=== PATIENT | female | born 1955 | race Caucasian/White ===

== ENCOUNTER 2018-04-27 11:01 | Emergency (ER) | payer OTHER, MEDICARE ==
[2018-04-27] MEDS ORDERED: NS 0.9% 1000 ML* 1,000 ML IV ONE (11:15)
--- NOTE | 2018-04-27 11:52 | ED ---
HPI Chest Pain - HPI Summary HPI Summary: This patient is a 63 year old female presenting to [facility] accompanied by her significant other with a chief complaint of chest pain since 3 days ago, on . 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 Patient was discharged from a recent donorubicin infusion on 04/24/18 at [facility]. Patient presents today due to chest pain that she believes is connected to swallowing her prescribed medications. Every time she takes her medications, she swallows 12-15 pills at once, patient states she feels pain in her right anterior chest, radiating through to the mid sternum. This morning, patient states that she felt fine prior to taking her medication, but approx. 30 minutes after ingestion, felt the same pain she has been feeling the past few days in her mid sternum. Each episode lasts around 2 hours and resolves spontaneously. During the painful episodes, patient states that she "feels like she's having a heart attack." She states that she feels like she "got punched" and the pain radiates to her shoulder blades. The pain is rated 7/10 in severity during the episodes and 3/10 currently in the ED. Symptoms aggravated by nothing. Symptoms alleviated by nothing. Patient additionally reports dizziness, abd pain due to enlarged spleen, distended abdomen. Dr. Martinez, heme/onc fellow at [place] called ahead to advise us that pt was coming to the ED, and that she was admitted from induction therapy for her ALL after dx 04/07/18, had initial RX with Vincristine, and now donorubicin. Pt's next donorubicin infusion is scheduled in [place] on 05/02/18. Pt is expected to be neutropenic at this time after donorubicin, per Dr. Martinez. Patient has a PMHx of heart disease (2013, 2015) with [address] and of CVA (2013). Patient's last stress test was 4 months ago with her care companion. Currently, she is seeing Dr. Lowe ([facility]) in [place]. Vital signs while in room: HR 86 bpm, BP 172/92. Home Medications see below: pt is on pantoprazole, not noted on list below. - History of Current Complaint Chief Complaint: EDChestPainROMI Time Seen by Provider: 04/27/18 11:15 Hx Obtained From: Patient, Family/Peoplesoft - Ish - Significant Other, Tc - Son, and her sister, Other: - Dr. Martinez, [place] heme/onc fellow Onset/Duration: Started Hours Ago, Started Days Ago - 3, Resolved Timing: Intermittent, Lasting Hours - 2 Initial Severity: Moderate Current Severity: Mild Pain Intensity: 3 Pain Scale Used: 0-10 Numeric Chest Pain Location: Mid Sternal, Right Anterior Chest Pain Radiates: Yes Chest Pain Radiates To:: Shoulder, Other - mid-sternum Character: Burning, Sharp/Stabbing Aggravating Factor(s): Nothing Alleviating Factor(s): Nothing Associated Signs and Symptoms: Positive: Dizziness, Abdominal Pain. Negative: Fever - Risk Factors Pulmonary Embolism Risk Factors: Malignancy AMI/ACS Risk Factors: Myocardial Infarction, Hypertension, Dyslipidemia - Allergy/Home Medications Allergies/Adverse Reactions: Allergies Allergy/AdvReac Type Severity Reaction Status Date / Time buspirone [From BuSpar] Allergy Unknown Verified 04/27/18 11:10 Reaction Details mirtazapine Allergy Unknown Verified 04/27/18 11:10 Reaction Details olanzapine [From Zyprexa] Allergy Unknown Verified 04/27/18 11:10 Reaction Details pregabalin [From Lyrica] Allergy Unknown Verified 04/27/18 11:10 Reaction Details ranolazine [From Ranexa] Allergy Unknown Verified 04/27/18 11:10 Reaction Details sulfamethoxazole Allergy Unknown Verified 04/27/18 11:10 [From Bactrim] Reaction Details trimethoprim [From Bactrim] Allergy Unknown Verified 04/27/18 11:10 Reaction Details elavil Allergy Unknown See Comment Uncoded 06/30/15 18:58 Home Medications: Home Medications Acyclovir 200 mg PO QID 04/27/18 [History Confirmed 04/27/18] Atovaquone 5 ml PO DAILY 04/27/18 [History Confirmed 04/27/18] Cipro 500 MG TAB 500 mg PO BID 04/27/18 [History Confirmed 04/27/18] Colace 100 mg PO DAILY 04/27/18 [History Confirmed 04/27/18] Diflucan 100 mg tab 200 mg PO DAILY 04/27/18 [History Confirmed 04/27/18] Gabapentin 200 mg PO TID 04/27/18 [History Confirmed 04/27/18] Meclizine HCl 25 mg PO TID PRN 04/27/18 [History Confirmed 04/27/18] Miralax 1 dose PO DAILY 04/27/18 [History Confirmed 04/27/18] Mirtazapine 15 mg PO DAILY 04/27/18 [History Confirmed 04/27/18] Prochlorperazine 5 mg PO DAILY 04/27/18 [History Confirmed 04/27/18] Senna 2 tab PO DAILY 04/27/18 [History Confirmed 04/27/18] Tylenol 325 mg PO Q4HR 04/27/18 [History Confirmed 04/27/18] Zofran 4 MG Odt TAB* 4 mg PO BID PRN 04/27/18 [History Confirmed 04/27/18] PMH/Surg Hx/FS Hx/Imm Hx Previously Healthy: No Endocrine/Hematology History: Reports: Other Endocrine/Hematological Disorders - ALL Denies: Hx Diabetes Cardiovascular History: Reports: Hx Angina, Hx Coronary Artery Disease, Hx Hypercholesterolemia, Hx Hypotension, Hx Hypertension, Hx Myocardial Infarction - 2011 Denies: Hx Valvular Heart Disease Respiratory History: Denies: Hx Asthma GI History: Reports: Hx Gastroesophageal Reflux Disease, Other GI Disorders - Hx Splenomegaly Musculoskeletal History: Reports: Hx Arthritis, Hx Orthopedic Injury - R Shoulder overuse injury, rotator cuff syndrome R shoulder, Other Musculoskeletal History - 3 bulging disk in back of neck Sensory History: Reports: Hx Contacts or Glasses - only for reading Opthamlomology History: Reports: Hx Contacts or Glasses - only for reading Neurological History: Reports: Hx CVA, Hx Headaches, Hx Transient Ischemic Attacks (TIA), Other Neuro Impairments/Disorders - L sided numbness from previous stroke Psychiatric History: Reports: Hx Anxiety, Hx Depression, Hx Panic Disorder, Other Psychiatric Issues/Disorders - dysthymic disorder - Cancer History Hx Chemotherapy: No Hx Radiation Therapy: No - Surgical History Surgery Procedure, Year, and Place: CAD s/p stents in 2010, tonsillectomy, adenoidectomy, rotator cuff surgery R shoulder. 3 R wrist repair and nerve surgeries Hx Anesthesia Reactions: Yes - Severe N&V for at least a week following Infectious Disease History: Yes Infectious Disease History: Reports: Hx Hepatitis - "drug-enduced" per pt. Denies: Traveled Outside the [place] in Last 30 Days - Family History Known Family History: Positive: Cardiac Disease - father - Social History Lives: With Family - unmarried significant other Alcohol Use: None Hx Substance Use: No Substance Use Type: Reports: None Hx Tobacco Use: Yes - States she quit 2 weeks ago Smoking Status (MU): Light Every Day Tobacco Smoker Type: Cigarettes Amount Used/How Often: 10 cigarettes/day Length of Time of Smoking/Using Tobacco: 40 years Have You Smoked in the Last Year: Yes Review of Systems Negative: Fever Positive: Chest Pain Respiratory: Negative Positive: Abdominal Pain Positive: no symptoms reported Musculoskeletal: Negative Skin: Negative Neurological: Other - dizziness Psychological: Normal All Other Systems Reviewed And Are Negative: Yes Physical Exam - Summary Physical Exam Summary: Appearance: Chronically ill-appearing, no pain distress, well-nourished Skin: Warm, color reflects adequate perfusion, dry Head: Normal Head/Face inspection, atraumatic Eyes: Conjunctiva clear ENT: Normal inspection Neck: Supple, no nodes, no JVD Respiratory: Lungs clear, normal breath sounds, no respiratory distress Cardio: RRR, No murmur, pulses normal, brisk capillary refill Abdomen: soft, distended, not tympanitic, nontender, spleen nonpalpable Bowel sounds: Present Musculoskeletal: Strength Intact/ROM intact, no calf tenderness, no edema. PICC line in right upper extremity Psychological: Normal Neuro: Alert, muscle tone normal, no focal deficit Triage Information Reviewed: Yes Vital Signs On Initial Exam: Initial Vitals Pulse BP Pulse Ox 87 172/92 99 04/27/18 11:09 04/27/18 11:09 04/27/18 11:09 Vital Signs Reviewed: Yes Diagnostics - Vital Signs Vital Signs Temp Pulse Resp BP Pulse Ox 04/27/18 11:12 98.9 F 91 18 172/92 98 04/27/18 11:10 14 04/27/18 11:09 87 172/92 99 - Laboratory Result Diagrams: 04/27/18 11:30 04/27/18 11:16 Lab Statement: Any lab studies that have been ordered have been reviewed, and results considered in the medical decision making process. - Radiology CXR Radiology Interpretation Completed By: Radiologist Summary of Radiographic Findings: CXR reveals, per radiologist, IMPRESSION: NO ACTIVE CARDIOPULMONARY DISEASE IS NOTED. ED physician has reviewed this radiology report. - CT CT Chest/Thorax CT Interpretation Completed By: Radiologist Summary of CT Findings: CT Chest/Thorax reveals, per radiologist, IMPRESSION: No pulmonary embolus is noted. Aorta demonstrates no evidence of aneurysmal dilatation or thoracic aortic dissection. ED physician has reviewed this radiology report. - EKG 1110 Cardiac Rate: NL EKG Rhythm: Sinus Rhythm - [address] Segment: Non-Specific Ectopy: None EKG Comparison: No Significant Change - since 11/09/15 Summary of EKG Findings: An EKG, taken 1110, reveals NSR (86 BPM), normal AVIVG , normal QTc, normal axis, no acute changes, not a STEMI. Re-Evaluation - Re-Evaluation First Eval Re-Evaluation Time: 12:33 Change: Improved Comment: Vital signs while in room: HR 81 bpm, BP 118/71. Informed patient of normal Troponin levels, but will continue workup. Patient currently states that she does not have chest pain. Second Eval Re-Evaluation Time: 13:00 Change: Unchanged Comment: Patient is still pain free. Explained the need for CT to patient. SO and son have left. Third Eval Re-Evaluation Time: 14:50 Change: Unchanged Comment: Pt remains chest pain free. Her sister is with her. Pt is retentive of water without nausea or vomiting or chest pain. Fourth Eval Re-Evaluation Time: 15:20 Change: Unchanged Comment: Pt was able to provide urine sample. No urinary symptoms. No chest pain. BP 141 systolic. Agrees with discharge. Chest Pain Course/Dx - Course Course Of Treatment: This patient is a 63 year old female presenting to [facility] accompanied by her significant other with a chief complaint of chest pain since 3 days ago, on 04/24/2018. Patient was recently dx with ALL and is currently taking donorubicin infusions. An EKG, taken 1110, reveals NSR (86 BPM), normal AVIVG, normal QTc, normal axis, no acute changes, not a STEMI. CXR reveals, per radiologist, IMPRESSION: NO ACTIVE CARDIOPULMONARY DISEASE IS NOTED. ED physician has reviewed this radiology report. Aware of absolute neutrophil count 0.2 at 1155. Reverse isolation initiated for neutropenic precautions at 1155. With Elevated D-Dimer results on 1253, will order CTA Chest. CT Chest/ Thorax reveals, per radiologist, IMPRESSION: No pulmonary embolus is noted. Aorta demonstrates no evidence of aneurysmal dilatation or thoracic aortic dissection. ED physician has reviewed this radiology report. Bloodwork Obtained. Urinalysis Obtained. In the ED course the patient was given NS 0.9% IV bolus, Iohexol 59mL IV. We discussed patient care with Dr. Kaur ( Mobile Sales Expert/Oncologist at [place]) at 1510 and discussed all of her hematology numbers. He recommended keeping her on her current medications, keeping the followup on 05/02/18 for next donorubicin infusion and discharging her home. Patient will be discharged with a dx of right chest pain, ALL, neutropenia. Patient is advised to follow up with Dr. Zuñiga (PCP) in 3 days. The patient is agreeable with this plan. - Chest Pain Differential Diagnosis/HQI/PQRI: Acute CA, ACS, CHF, GI Disease, Pulmonary Embolism - Diagnoses Provider Diagnoses: Chest pain, Neutropenia, ALL (acute lymphoblastic leukemia), Hypertension, poor control - Provider Notifications Instructed by Provider To: Other - We discussed patient care with Dr. Kaur ( Oncologist at [place]) at 1510 and discussed all of her hematology numbers. He recommended keeping her on her current medications, keeping the followup on 05/02 and discharging her home. Discharge - Sign-Out/Discharge Documenting (check all that apply): Patient Departure - Discharge Plan Condition: Stable Disposition: HOME Patient Education Materials: Chest Pain (ED), Gastroesophageal Reflux Disease ( ED) Referrals: Yogesh PRINGLE,Ayana Early [Primary Care Provider] - 2 Days Additional Instructions: Continue your medications as directed, but you may space them out in time a bit. We spoke with Dr. Kaur, from [facility] about your condition today, and he is agreeable with your discharge as well. You are neutropenic right now, with an absolute neutrophil count of 0.2, so you need to be cautious about acquiring any infections. This number is expected after having your chemotherapy. You did not have a pulmonary embolus or problem with your aorta on the CTA of your chest, and you had two troponin (heart enzyme levels) that were zero, three hours apart. You may continue your usual activities at home and keep your appointment on May 02, 2018 with [facility] for your next chemotherapy infusion. Return to the ER if any new or worsening symptoms. - Billing Disposition and Condition Condition: STABLE Disposition: Home - Attestation Statements Document Initiated by Scribe: Yes Documenting Scribe: Niesha Gordillo Provider For Whom Scribe is Documenting (Include Credential): Suzanne Pelayo MD Scribe Attestation: I, Tecjoon Duy, scribed for Suzanne Pelayo MD on 05/06/18 at 1423. Scribe Documentation Reviewed: Yes Provider Attestation: The documentation as recorded by the Niesha ospina accurately reflects the service I personally performed and the decisions made by me, Suzanne Pelayo MD Status of Scribluis alberto Document: Viewed
[2018-04-27 11:53] LABS: ABS Basophils 0 10^3/ul (0-0.2); ABS Eosinophils 0 10^3/ul (0-0.6); ABS Lymphocytes 0.4 10^3/ul (1.0-4.8); ABS Monocytes 0 10^3/ul (0-0.8); ABS Neutrophils 0.2 10^3/ul (1.5-7.7); Activated Partial Thrombo Time 23.9 seconds (26.0-36.3); Hematocrit 23 % (35-47); Hemoglobin 7.7 g/dl (12.0-16.0); INR 0.87 (0.77-1.02); Mean Corpuscular HGB Conc 34 g/dl (31-36); Mean Corpuscular Hemoglobin 28 pg (27-31); Mean Corpuscular Volume 82 fL (80-97); Mean Platelet Volume 6.9 fL (7.4-10.4); Platelet Count 59 10^3/ul (150-450); Red Blood Count 2.78 10^6/ul (4.00-5.40); Red Cell Distribution Width 17 % (10.5-15); White Blood Count 0.6 10^3/ul (3.5-10.8)
[2018-04-27 12:34] LABS: ABS Nucleated RBC 0 10^3/ul; Eosinophil % 1.3 %; Lymphocyte % 63.5 %; Nucleated Red Blood Cells % 0
[2018-04-27 12:44] LABS: Albumin 3.5 g/dL (3.2-5.2); Calcium 8.2 mg/dL (8.6-10.3); Magnesium 2.1 mg/dL (1.9-2.7); Potassium 4.1 mmol/L (3.5-5.0); Total Bilirubin 0.5 mg/dL (0.2-1.0)
[2018-04-27 12:50] LABS: Albumin/Globulin Ratio 1.8 (1-3); BUN/Creatinine Ratio 20.5 (8-20); EGFR Non-African American 69.9 (>60); Globulin 1.9 g/dL (2-4); Total Protein 5.4 g/dL (6.4-8.9)
[2018-04-27 13:02] LABS: TSH (Thyroid Stimulating Horm) 1.99 mcIU/mL (0.34-5.60)
[2018-04-27] MEDS ORDERED: Iohexol 350* (CONTRAST) 500 ML MDV IV ONE (13:13)
[2018-04-27 15:22] VITALS: BP 141/79
[2018-04-27 15:34] LABS: Urine Appearance Clear; Urine Bilirubin Negative (Negative); Urine Blood Negative (Negative); Urine Color Straw; Urine Glucose Negative (Negative); Urine Ketones Negative (Negative); Urine Nitrite Negative (Negative); Urine Protein Negative (Negative); Urine Specific Gravity 1.034 (1.010-1.030); Urine Urobilinogen Negative (Negative)
== END 2018-04-27 15:52 | disposition home or self-care (01) ==
LOC: ED 11:01
DX: R07.9 Chest pain, unspecified (principal); D70.9 Neutropenia, unspecified; C91.00 Acute lymphoblastic leukemia not having achieved remission; I10 Essential (primary) hypertension
CPT/HCPCS: 36415; 71045; 71275; 80053; 81003; 82550; 82553; 83605; 83735; 83880; 84436; 84443; 84484; 85025; 85060; 85379; 85610; 85730; 93005; 96361; 96374; 99284; Q9967

== ENCOUNTER 2018-12-01 16:02 | Inpatient (IN) | payer OTHER, MEDICARE ==
[2018-12-01] MEDS ORDERED: NS 0.9% 1000 ML** 1,000 ML IV.FLUID IV ONE ×2 (16:22→16:35)
--- NOTE | 2018-12-01 16:33 | ED ---
Abdominal Pain/Female - HPI Summary HPI Summary: This patient is a 63 year old female accompanied by her daughter presenting to [facility] with a chief complaint of abdominal pain since this morning. The patient has acute myeloid leukemia and is currently undergoing chemotherapy. Her daughter reports she has fatigue and weakness. Her pain is rated 7/10 in severity. Patient has a fever in room. - History of Current Complaint Chief Complaint: EDAbdPain Stated Complaint: ABD PAIN PER EMS Time Seen by Provider: 12/01/18 16:24 Hx Obtained From: Family/Book Or Script Editor Onset/Duration: Lasting Hours Timing: Constant Pain Intensity: 7 Pain Scale Used: 0-10 Numeric Allergies/Adverse Reactions: Allergies Allergy/AdvReac Type Severity Reaction Status Date / Time amitriptyline [From Elavil] Allergy See Comment Verified 12/01/18 16:57 buspirone [From BuSpar] Allergy Unknown Verified 04/27/18 11:10 Reaction Details mirtazapine Allergy Unknown Verified 04/27/18 11:10 Reaction Details olanzapine [From Zyprexa] Allergy Unknown Verified 04/27/18 11:10 Reaction Details pregabalin [From Lyrica] Allergy Unknown Verified 04/27/18 11:10 Reaction Details ranolazine [From Ranexa] Allergy Unknown Verified 04/27/18 11:10 Reaction Details sulfamethoxazole Allergy Unknown Verified 04/27/18 11:10 [From Bactrim] Reaction Details trimethoprim [From Bactrim] Allergy Unknown Verified 04/27/18 11:10 Reaction Details PMH/Surg Hx/FS Hx/Imm Hx Endocrine/Hematology History: Denies: Hx Diabetes Cardiovascular History: Reports: Hx Angina, Hx Coronary Artery Disease, Hx Hypercholesterolemia, Hx Hypotension, Hx Hypertension, Hx Myocardial Infarction - 2012, Other Cardiovascular Problems/Disorders - CADx3, CVA/TIA Denies: Hx Valvular Heart Disease Respiratory History: Denies: Hx Asthma GI History: Reports: Hx Gastroesophageal Reflux Disease, Other GI Disorders - Hx Splenomegaly Musculoskeletal History: Reports: Hx Arthritis, Hx Orthopedic Injury - R Shoulder overuse injury, rotator cuff syndrome R shoulder, Other Musculoskeletal History - 3 bulging disk in back of neck Sensory History: Reports: Hx Contacts or Glasses - only for reading Opthamlomology History: Reports: Hx Contacts or Glasses - only for reading Neurological History: Reports: Hx Headaches, Hx Transient Ischemic Attacks (TIA) , Other Neuro Impairments/Disorders - L sided numbness from previous stroke Psychiatric History: Reports: Hx Anxiety, Hx Depression, Hx Panic Disorder, Other Psychiatric Issues/Disorders - dysthymic disorder - Cancer History Hx Chemotherapy: No Hx Radiation Therapy: No - Surgical History Surgery Procedure, Year, and Place: CAD s/p stents in 2010, tonsillectomy, adenoidectomy, rotator cuff surgery R shoulder. 3 R wrist repair and nerve surgeries Hx Anesthesia Reactions: Yes - Severe N&V for at least a week following Infectious Disease History: No Infectious Disease History: Reports: Hx Hepatitis - "drug-enduced" per pt. Denies: Traveled Outside the [place] in Last 30 Days - Family History Known Family History: Positive: Cardiac Disease - father, Hypertension - Social History Alcohol Use: None Hx Substance Use: No Substance Use Type: Reports: None Hx Tobacco Use: Yes - States she quit 2 weeks ago Smoking Status (MU): Light Every Day Tobacco Smoker Type: Cigarettes Amount Used/How Often: 10 cigarettes/day Length of Time of Smoking/Using Tobacco: 40 years Have You Smoked in the Last Year: Yes Review of Systems Positive: Fever, Fatigue Positive: Abdominal Pain Positive: Weakness All Other Systems Reviewed And Are Negative: Yes Physical Exam - Summary Physical Exam Summary: Appearance: Well appearing, no pain distress. Alert and confused. Skin: warm, dry, reflects adequate perfusion Head/face: normal. Blister on the lower lip. Eyes: EOMI, SEN ENT: normal Neck: supple, non-tender Respiratory: CTA, breath sounds present Cardiovascular: Tachycardia, pulses symmetrical Abdomen: diffuse abdominal tenderness, soft. Musculoskeletal: normal, strength/ROM intact Neuro: normal, sensory motor intact, A&Ox3 Triage Information Reviewed: Yes Vital Signs On Initial Exam: Initial Vitals Temp Pulse Resp BP Pulse Ox 101.2 F 117 18 86/56 97 12/01/18 16:17 12/01/18 16:17 12/01/18 16:17 12/01/18 16:17 12/01/18 16:17 Vital Signs Reviewed: Yes Procedures - Central Line Right Femoral Central Line Position: femoral (R) - Intubation Time of Intubation: 19:23 Intubation Method: orotracheal Tube Size (cm): 7.5 Medications: Succinylcholine Intubation Complications: no complications Post Intubation Xray: Yes Diagnostics - Vital Signs Vital Signs Temp Pulse Resp BP Pulse Ox 12/01/18 16:18 116 86/56 97 12/01/18 16:17 101.2 F 116 18 86/56 97 - Laboratory Result Diagrams: 12/01/18 16:51 12/01/18 16:51 Lab Statement: Any lab studies that have been ordered have been reviewed, and results considered in the medical decision making process. - Radiology CXR Radiology Interpretation Completed By: Radiologist Summary of Radiographic Findings: Chest x-ray findings are most consistent with right upper lobe pneumonia. I recommend follow-up on chest x-ray after an appropriate course of therapy to certain resolution. ED Provider has reviewed this report. - CT Brain CT Interpretation Completed By: Radiologist Summary of CT Findings: Bilateral frontoparietal subdural hygromas with maximum thickness of 9 mm are likely chornic. The ventricles appear somewhat small and could be secondary to these chronic SDH. ED Provider has reviewed this report. Abd/Pelvis CT Interpretation Completed By: Radiologist Summary of CT Findings: Mild focal ileus of distal small bowel, nonspecific finding. ED Provider has reviewed this report. - EKG 1622 Cardiac Rate: Tachycardia - 125 BPM EKG Rhythm: Sinus Tachycardia 1846 Cardiac Rate: Tachycardia - 116 BPM EKG Rhythm: Sinus Tachycardia Abdominal Pain Fem Course/Dx - Course Course Of Treatment: This patient is a 63 year old female accompanied by her daughter presenting to [facility] with a chief complaint of abdominal pain since this morning. Chest x-ray findings are most consistent with right upper lobe pneumonia. I recommend follow-up on chest x-ray after an appropriate course of therapy to certain resolution. Brain CT reveals Bilateral frontoparietal subdural hygromas with maximum thickness of 9 mm are likely chornic. The ventricles appear somewhat small and could be secondary to these chronic SDH. CT Pelvis reveals Mild focal ileus of distal small bowel, nonspecific finding. EKG revealed sinus tachycardia. Bloodwork/UA reviewed. Central line was placed in the right femoral artery at 1910. Patient was intubated orotracheally at 1930. Dr. Cole and Dr. Leggett, Hospitalists, accepted the patient for admission. Gallbladder U/S reading pending upon admission. This plan was discussed with the patient and she was agreeable with this plan. - Diagnoses Provider Diagnoses: Septic shock, Pyelonephritis, Subdural hematoma, Multiple organ failure, Pneumonia, Leukemia, Abnormal serum level of lipase, Respiratory failure requiring intubation - Critical Care Time Critical Care Time: 75-104 min Discharge - Sign-Out/Discharge Documenting (check all that apply): Patient Departure - Admission Patient Received Moderate/Deep Sedation with Procedure: No - Discharge Plan Condition: Stable Disposition: ADMITTED TO [facility] Referrals: Ayana Zuñiga MD [Primary Care Provider] - - Attestation Statements Document Initiated by Scribe: Yes Documenting Scribe: Juan Diego Corcoran Provider For Whom Scribe is Documenting (Include Credential): Mikie Melendrez MD Scribe Attestation: Juan Diego Painting, scribed for Mikie Melendrez MD on 12/01/18 at 1847. Status of Scribe Document: Ready
[2018-12-01] MEDS ORDERED: Piperacillin/Tazobac ADVAN(*) 3.375 GM in NS 0.9% 100 ML* 100 ML IVPB ONE ×2 (16:35→20:06)
[2018-12-01] MEDS ORDERED: Acetaminophen TAB* 325 MG PO ONE (16:50)
[2018-12-01] MEDS ORDERED: Vancomycin(*) 1,250 MG IV x ONCE IVPB ONE ×2 (17:00)
[2018-12-01] MEDS ORDERED: Vancomycin(*) 1,000 MG VIAL IVPB SCH (17:00)
[2018-12-01 17:11] LABS: ABS Lymphocytes 0.1 10^3/ul (1.0-4.8); ABS Monocytes 0.1 10^3/ul (0-0.8); ABS Neutrophils 0.4 10^3/ul (1.5-7.7); Eosinophil % 0.1 %; Hematocrit 24 % (35-47); Lymphocyte % 16.6 %; Mean Corpuscular HGB Conc 33 g/dL (31-36); Mean Corpuscular Hemoglobin 30 pg (27-31); Mean Corpuscular Volume 91 fL (80-97); Mean Platelet Volume 6.6 fL (7.4-10.4); Platelet Count 244 10^3/uL (150-450); Red Blood Count 2.67 10^6 /uL (3.70-4.87); Red Cell Distribution Width 17 % (10-15); White Blood Count 0.7 10^3/uL (3.5-10.8)
[2018-12-01 17:12] LABS: Activated Partial Thrombo Time 27.1 seconds (26.0-38.0); INR 1.27 (0.82-1.09)
[2018-12-01 17:20] LABS: ALT 168 U/L (7-52); AST 141 U/L (13-39); Albumin 3.1 g/dL (3.2-5.2); Albumin/Globulin Ratio 1.1 (1-3); Alkaline Phosphatase 872 U/L (34-104); Blood Urea Nitrogen 28 mg/dL (6-24); CO2 Carbon Dioxide 15 mmol/L (22-32); Calcium 8.4 mg/dL (8.6-10.3); Chloride 102 mmol/L (101-111); EGFR African American 46.3 (>60); EGFR Non-African American 38.2 (>60); Globulin 2.7 g/dL (2-4); Glucose 126 mg/dL (70-100); Sodium 136 mmol/L (135-145); Total Protein 5.8 g/dL (6.4-8.9)
[2018-12-01 17:21] LABS: Anion Gap 19 mmol/L (2-11); Potassium 5.2 mmol/L (3.5-5.0)
[2018-12-01] MEDS ORDERED: Iodixanol* (CONTRAST) 320 MG/ML 100 ML SDV IV ONE (17:26)
[2018-12-01 17:34] LABS: Troponin I 0.05 ng/mL (<0.04)
[2018-12-01] MEDS ORDERED: Albuterol/Ipratropium NEB.SOL* Albuterol 2.5 MG/Ipratropium 0.5 MG 3 ML INH ONE (18:55)
[2018-12-01] MEDS ORDERED: Norepinephrine 16MCG/ML IVPRE* 4,000 MCG/250 ML BAG IV SCH ×2 (19:00→21:00)
[2018-12-01] MEDS ORDERED: Norepinephrine 16MCG/ML IVPRE* 4,000 MCG/250 ML BAG IV ONE ×2 (19:01→21:53)
[2018-12-01] MEDS ORDERED: Etomidate* 2 MG/ML 20 ML VIAL (40 MG) ONE (19:30)
[2018-12-01] MEDS ORDERED: Succinylcholine* 20 MG/ML 10 ML VIAL ONE (19:30)
[2018-12-01] MEDS ORDERED: Propofol* 100 ML ONE (19:39)
[2018-12-01] MEDS ORDERED: Propofol* 100 ML IV SCH ×2 (20:00→21:00)
[2018-12-01] MEDS ORDERED: Albuterol/Ipratropium NEB.SOL* Albuterol 2.5 MG/Ipratropium 0.5 MG 3 ML INH PRN (20:07)
[2018-12-01] MEDS ORDERED: PROCHLORPERAZINE INJ 5 MG/ML 2 ML VIAL IV PRN (20:07)
[2018-12-01] MEDS ORDERED: Acetaminophen ADULT LIQ* 650 MG/20.3 ML UDC G TUBE PRN (20:07)
[2018-12-01] MEDS ORDERED: Morphine 4 MG/ML VIAL (1 ml) 4 MG/ML VIAL IV ONE (20:15)
[2018-12-01] MEDS ORDERED: Acetaminophen SUPP* 650 MG SUPP PR PRN (20:39)
[2018-12-01] MEDS ORDERED: Zosyn per Pharmacy* NOTE FOLLOW UP SCH (21:00)
[2018-12-01] MEDS ORDERED: Vancomycin(*) 1,000 MG in NS 0.9% 250 ML* 250 ML IVPB ONE (21:00)
[2018-12-01] MEDS ORDERED: Vancomycin per Pharmacy* NOTE FOLLOW UP SCH (21:00)
[2018-12-01] MEDS ORDERED: ZOSYN 3.375 GM Q8H per EXTENDED INFUSION IVPB SCH ×4 (21:00→22:00)
[2018-12-01] MEDS ORDERED: Lactated Ringers 1000 ML Bag* 1,000 ML IV SCH (21:00)
[2018-12-01] MEDS ORDERED: Azithromycin 500 mg/250 ml NS 500 MG/250 ML BAG IVPB SCH (21:00)
[2018-12-01 21:19] LABS: Hematocrit 23 % (35-47); Hemoglobin 7.6 g/dL (12.0-16.0); Mean Corpuscular HGB Conc 33 g/dL (31-36); Mean Corpuscular Hemoglobin 30 pg (27-31); Mean Corpuscular Volume 91 fL (80-97); Mean Platelet Volume 6.9 fL (7.4-10.4); Platelet Count 333 10^3/uL (150-450); Red Blood Count 2.54 10^6 /uL (3.70-4.87); Red Cell Distribution Width 18 % (10-15); White Blood Count 0.7 10^3/uL (3.5-10.8)
[2018-12-01 21:24] LABS: Urine Appearance Cloudy; Urine Bacteria Absent (Absent); Urine Bilirubin Negative (Negative); Urine Blood Negative (Negative); Urine Color Amber; Urine Glucose Negative (Negative); Urine Ketones Negative (Negative); Urine Nitrite Negative (Negative); Urine Protein 1+(30 mg/dL) (Negative); Urine Red Blood Cell 3+(>10/hpf) (Absent); Urine Specific Gravity 1.043 (1.010-1.030); Urine Squamous Epithelial Cell Present (Absent); Urine Urobilinogen Negative (Negative); Urine White Blood Cell 2+(11-20/hpf) (Absent)
[2018-12-01 21:28] LABS: ALT 140 U/L (7-52); AST 118 U/L (13-39); Albumin 2.7 g/dL (3.2-5.2); Albumin/Globulin Ratio 1.1 (1-3); Alkaline Phosphatase 664 U/L (34-104); BUN/Creatinine Ratio 22.9 (8-20); Blood Urea Nitrogen 30 mg/dL (6-24); Chloride 110 mmol/L (101-111); EGFR African American 49.9 (>60); EGFR Non-African American 41.3 (>60); Globulin 2.4 g/dL (2-4); Glucose 152 mg/dL (70-100); Potassium 4.7 mmol/L (3.5-5.0); Sodium 137 mmol/L (135-145); Total Protein 5.1 g/dL (6.4-8.9)
[2018-12-01 21:29] LABS: Eosinophil % 0.2 %
[2018-12-01 21:30] LABS: ABS Lymphocytes 0.2 10^3/ul (1.0-4.8); ABS Neutrophils 0.5 10^3/ul (1.5-7.7); Anion Gap 14 mmol/L (2-11); CO2 Carbon Dioxide 13 mmol/L (22-32)
[2018-12-01 21:31] LABS: Lymphocyte % 28.6 %; Nucleated Red Blood Cells % 3.5; Troponin I 0.05 ng/mL (<0.04)
--- NOTE | 2018-12-01 21:41 | PN ---
Sepsis Event Evaluation Date of Evaluation: 12/01/18 Time of Evaluation: 21:38 Current Stage of Sepsis: Septic Shock Vital Signs - Last 12 Hours: Vital Signs - 12 hr Temp Pulse Resp BP Pulse Ox 12/01/18 21:05 100.7 F 108 28 88/5 94 12/01/18 20:31 100.7 F 12/01/18 20:29 100.8 F 114 69/56 88 12/01/18 20:25 100.9 F 118 115/59 89 12/01/18 20:24 100.9 F 121 32 130/68 90 12/01/18 20:22 100.9 F 122 33 111/68 89 12/01/18 20:21 34 12/01/18 20:20 100.9 F 124 38 89 12/01/18 20:14 100.9 F 123 37 130/76 88 12/01/18 20:12 100.9 F 121 37 121/60 88 12/01/18 20:09 100.9 F 120 33 118/66 88 12/01/18 20:08 100.9 F 122 34 116/71 87 12/01/18 20:00 125 30 89 12/01/18 19:59 122 40 112/89 89 12/01/18 19:54 114 34 101/76 92 12/01/18 19:49 125 33 154/90 95 12/01/18 19:44 123 27 158/94 97 12/01/18 19:39 117 16 125/77 92 12/01/18 19:34 120 31 127/81 94 12/01/18 19:29 116 89/53 89 12/01/18 19:26 121 96/61 86 12/01/18 19:19 120 107/67 88 12/01/18 19:18 122 131/63 86 12/01/18 19:14 118 114/70 90 12/01/18 19:13 119 117/71 90 12/01/18 19:10 117 117/62 93 12/01/18 19:04 117 49/34 94 12/01/18 19:00 117 92 12/01/18 18:59 118 93/36 91 12/01/18 18:55 117 92/64 87 12/01/18 18:44 116 95/81 89 12/01/18 18:39 115 92/58 88 12/01/18 18:34 112 84/52 89 12/01/18 18:31 119 69/40 89 12/01/18 18:29 116 89/63 88 12/01/18 18:22 114 66/34 90 12/01/18 18:18 114 88 12/01/18 18:14 100.8 F 12/01/18 18:11 116 89 12/01/18 17:17 109/63 12/01/18 17:08 131 92 12/01/18 16:47 117/66 12/01/18 16:18 116 86/56 97 12/01/18 16:17 101.2 F 116 18 86/56 97 Lactic Acid: 12/01/18 12/01/18 16:51 20:48 Lactic Acid 10.4 H* 6.8 H* - Cardiopulmonary Exam Capillary Refill: Immediate Respiratory: Symmetrical Chest Expansion and Respiratory Effort, - - BS+ bilaterally with crackles on RUL and diminished through out Cardiovascular: RRR - Normal S1 and S2, tachy - Peripheral Pulse Exam Radial Pulses: Bilateral Normal - Skin Exam Skin Exam: Flushed - Dawson Coma Scale Best Eye Response: 1 - None Best Motor Response: 4 - Withdraws Best Verbal Response: 1 - Intubated Coma Scale Total: 6.0 Assess/Plan/Problems-Billing Assessment: 63yo F with PMH of CAD, CVA, HTN, leukemia undergoing chemotherapy, admitted with septic shock secondary to pneumonia and possible intra- abdominal source. LA is trending down and MAP is greater than 65. Will continue current management.
[2018-12-01] MEDS ORDERED: Vasopressin* 100 UNITS in D5W 250 ML BAG* 245 ML IV SCH (21:45)
[2018-12-01] MEDS ORDERED: Pantoprazole IV* 40 MG IV SCH (22:00)
[2018-12-01] MEDS ORDERED: Vasopressin* 100 UNITS in NS 0.9% 250 ML* 245 ML IV SCH (22:05)
[2018-12-01] MEDS: Norepinephrine 16MCG/ML IVPRE* 4,000 MCG/250 ML BAG IV SCH (22:14)
[2018-12-01] MEDS ORDERED: Hydrocortisone INJ* 100 MG VIAL IV SCH (22:22)
[2018-12-01] MEDS ORDERED: Hydrocortisone INJ* 100 MG VIAL ONE (22:26)
--- NOTE | 2018-12-01 22:39 | HP ---
CC: Dr. Ayana Zuñiga; Dr. Leggett; Dr. Rangel; Dr. Case Chapin, [facility] HISTORY AND PHYSICAL: DATE OF ADMISSION: 12/01/18 TIME OF EVALUATION: 7:30 p.m. PRIMARY CARE PROVIDER: Dr. Ayana Zuñiga. CRITICAL CARE PROVIDER: Dr. Leggett. CONSULTING ONCOLOGIST: Dr. Rangel. PRIMARY ONCOLOGIST: Dr. Case Chapin at [facility]. CHIEF COMPLAINT: "She had a rough night" as per her significant other. HISTORY OF PRESENT ILLNESS: Ms. Combs is a 63-year-old female with a past medical history of coronary artery disease; hypertension; CVA; GERD; anxiety; depression; leukemia, undergoing chemotherapy, who was brought into the emergency room by EMS with complaints of abdominal pain, fatigue, and weakness. At the time of my evaluation, the patient is being prepared for intubation, so most of the history is obtained from her significant other, Ish Garnica. He states that the patient was diagnosed with acute myeloid leukemia in April of last year. She is undergoing treatment under Dr. Chapin at [facility]. He states that she is on the third line of chemotherapy at this point due to having several side effects with her prior regimens. He states that earlier this year she had some abdominal pain and GI bleed that was deemed secondary to her chemotherapy, and at that point, her regimen was changed and the GI bleed resolved, but she was told that she was just "partially responding " to the treatment and eventually they would not be able to give her anymore treatment. He states that her last chemotherapy was a couple of weeks ago and she is now getting chemotherapy "in pill form." Her sister tells me that the patient was seen last week and had received blood transfusions at that time. Her significant other states that a couple of days ago she started to complain of diffuse abdominal pain, but had no nausea, no vomiting, no diarrhea, and no episodes of GI bleed as in the past. He gave her 1 mg of morphine (usual prescription is for 2.5 mg) and she had some improvement of the pain. As per daughter, yesterday, she appeared to be doing a little better, her appetite was preserved, she was able to eat well, and the daughter is under the impression she had a bowel movement yesterday. The significant other states that overnight she became worse and she had "a very rough night." Her condition continued to decline and EMS was called for further evaluation. As per EMS' description, the patient "would respond to voice and would barely open her eyes , but was in obvious pain". When the patient was asked, she stated that her "stomach was hurting." As per EMS, the patient had initial blood pressure of 90 /56, heart rate of 124, respiratory rate was 28, temperature was 101.2, and she received 8 mg of Zofran for nausea and 100 mcg of fentanyl IV for pain management. Her fingerstick was 168. In the emergency room, the patient had her workup completed and she became more hypotensive requiring pressors. She also became more confused, had tachypnea and was desaturating on nasal cannula, reason why decision was made to intubate her, so I was not able to get much information directly from the patient. PAST MEDICAL HISTORY: 1. Coronary artery disease, status post IA, s/p stent in 2010. 2. Hypertension. 3. CVA. 4. GERD. 5. Anxiety. 6. Depression. 7. History of CHF. 8. Status post right wrist surgery. 9. Status post tonsillectomy. 10. Acute myeloid leukemia, diagnosed in April, undergoing chemotherapy as per family report. Please note that most of the past medical history was obtained from her chart. MEDICATIONS: Medication list is not available at this time. ALLERGIES: The patient has unknown reactions to AMITRIPTYLINE, BUSPIRONE, FENTANYL, MIRTAZAPINE, OLANZAPINE, PREGABALIN, RANOLAZINE, SULFAMETHOXAZOLE, TRIMETHOPRIM. FAMILY HISTORY: As per records, the patient's mother had a CVA and her father had a heart attack. SOCIAL HISTORY: The patient is a half-a-pack smoker for more than 40 years as per records. No history of alcohol use. Surrogate decision maker is her significant other, Ish Garnica, phone number is [phone] and [phone]. REVIEW OF SYSTEMS: I am unable to obtain from the patient as she is sedated at this time. PHYSICAL EXAMINATION GENERAL: The patient is an elderly lady who appears older than stated age, lying in the ED stretcher, in no acute distress, intubated, being mechanically ventilated. VITAL SIGNS: Temperature 100.8, heart rate is 115, respiratory rate is 32, oxygen saturation is 98% on ventilator, blood pressure is 115/59. HEENT: Pupils are equal. Moist mucous membranes. CHEST: Breath sounds present bilaterally with crackles in the right upper lobe , diminished throughout. CVS: Normal S1, S2. Regular rate and rhythm. Tachycardic. ABDOMEN: Soft. Mild distention. Mild diffuse tenderness, but no guarding or rebound. Bowel sounds are present and diminished. EXTREMITIES: No edema. There is no mottling and capillary refill is good, but the patient is on Levophed at this time. NEURO: She is sedated. DIAGNOSTIC STUDIES/LAB DATA: The patient had a CBC that showed WBC of 0.7, hemoglobin of 8, hematocrit of 24, platelets of 244 with 63% neutrophils. Her ANC is 0.4 and she has 17% blasts, 14% immature granulocytes. INR is 1.2. ABG showed a pH of 7.29, pCO2 of 24, pO2 of 88, bicarb of 14, oxygen saturation 98.9 %. Chemistry showed sodium 136, potassium of 5.2, chloride of 102, bicarb of 15 , anion gap of 19, BUN of 28, creatinine of 1.4, glucose of 126, lactic acid is 10.4, calcium is 8.4. Total bilirubin is 0.5, AST 141, ALT 168, alk phos 872. Troponin is 0.05, BNP is 125. Total protein 5.8, albumin 3.1, lipase is less than 10. There is no urinalysis result available at this time. Chest x-ray done initially showed findings most consistent with right upper lobe pneumonia. CT of the brain without contrast showed bilateral frontoparietal subdural hygromas with maximum thickness of 9 mm and are likely chronic. The ventricles appear somewhat small and could be secondary to these chronic subdural hematomas. An MRI was recommended on an elective basis. CT of the abdomen and pelvis showed mild focal ileus of the distal small bowel with no hydronephrosis, but there is possible minimal left perinephric stranding , question pyelonephritis. Periaortic and mesenteric adenopathy, mild splenomegaly, and contracted thick-walled gallbladder. Gallbladder ultrasound showed unusually thick gallbladder, which often results from a liver disease or other infiltration. No gallstones, no ductal dilatation. A followup chest x-ray done after intubation showed the ET tube ends 4 cm from the chevy, NG tube ends in the gastric body, and there is worsening right upper lobe pneumonia. EKG done on 12/01/18 at 4:48 p.m. showed sinus tachycardia at 125 beats per minute with no acute ischemic changes and a repeat one done at 6:46 p.m. showed sinus tachycardia at 116 beats per minute with no significant changes from the prior one done earlier today. On her prior EKG from April 2018, she was not as tachycardic. ASSESSMENT AND PLAN: Ms. Combs is a 63-year-old female with a past medical history of coronary artery disease and myocardial infarction, status post stents ; hypertension; cerebrovascular accident; gastroesophageal reflux disease; anxiety; depression; congestive heart failure; reported acute myeloid leukemia, who presents to the emergency room with complaints of abdominal pain, weakness, and fatigue, found to be in septic shock, progressing with multiorgan failure, likely secondary to pneumonia but also suspect a possible intraabdominal source. 1. Septic shock. The patient met sepsis criteria on admission with fever, tachycardia, tachypnea, leukopenia, and required vasopressors despite receiving initial fluid bolus. At this point, she is intubated, has a central line, 2 peripherals, receiving IV fluids and Levophed. Her initial lactic acid was 10.4 , and we are going to check serial ones. Blood cultures were sent in the emergency room, and I am waiting for urinalysis. She has quite impressive consolidation in her right upper lobe, but she was also having abdominal complaints, so she may have more than 1 source considering she is immunosuppressed. At this point, she will be admitted to the intensive care unit. She will be continued on pressors, and she will be treated with broad- spectrum antibiotics including vancomycin, Zosyn, and azithromycin. We will also add corticosteroids. 2. Right upper lobe pneumonia. This could be healthcare-associated pneumonia as she is receiving chemotherapy at [place], and her last visit was a week ago. Blood cultures were already sent. We are going to check legionella and pneumococcal antigens as well as sputum culture if we are able to obtain a sample. She will be treated with vancomycin, Zosyn, and azithromycin, and we will narrow her antibiotics as we get culture results back. 3. Severe lactic acidosis/metabolic acidosis. In the setting of septic shock. We will continue pressors and IV fluids, and we will check serial lactic acids until her lactic acid is less than 2. 4. Abdominal pain. The patient may have an intraabdominal source for her sepsis including her gallbladder or even urinary tract infection. She has increase of her LFTs, but I believe at this point, this likely represents shock liver and not necessarily a primary liver process. Her significant other states that the patient has had issues on and off with abdominal pain and gastrointestinal bleed associated with her chemotherapy. Her CT showed some ileus, but no other acute findings to justify any other bowel pathology, although the lactic acid elevation is concerning for an ischemic bowel. We will continue to monitor and follow up her course. As stated above, I am going to wait for urinalysis as the CT questioned perinephric stranding that will be compatible with pyelonephritis, but in any case, this antibiotic regimen should cover it. 5. Acute kidney injury/mild hyperkalemia. This is likely secondary to acute tubular necrosis in the setting of septic shock. The patient will be admitted to the intensive care unit. We will continue IV fluids and pressors, and we will monitor her renal function and urine output. 6. Troponin elevation. Suspect demand ischemia in a patient with known coronary artery disease in the setting of septic shock. We will trend troponins. Her EKGs for now do not show any signs of acute ischemia. 7. Acute hypoxemic respiratory failure. Secondary to septic shock, progressing to multiorgan failure. The patient was intubated in the emergency room. We will continue to monitor her oxygen saturation and respiratory status. At this point, she is sedated with propofol, but requiring higher doses. I will add morphine as I suspect one of the drivers of her tachypnea is abdominal pain at this point. We will continue to follow and add a morphine drip or Ativan drip depending on how she progresses. 8. Leukopenia. The patient has a reported diagnosis of acute myeloid leukemia , and as per significant other, she is already on a third line therapy as she had severe side effects with the other ones. I have contacted Dr. Case Chapin 's service and left a message asking someone to call me back. I also contacted our oncologist on-call, Dr. Rangel, and he will see the patient in consultation. He states that at this point Neupogen and Neulasta are not indicated. 9. Normochromic, normocytic anemia. The family reports that last week the patient received transfusion. This anemia is likely secondary to her acute myeloid leukemia. We will continue to monitor H and H's. 10. Bilateral hygromas. CT brain showed bilateral frontoparietal subdural hygromas. MRI brain was recommended on an elective basis. 11. DVT prophylaxis: She has a score of 5 on the DVT Prophylaxis Risk Assessment Guide, but she has had significant issues with gastrointestinal bleed as described by her significant other, and also has bilateral subdural hygromas, so at this point, I am going to keep her just on SCDs and then after we get more records and information about what actually happened, then we can consider pharmacological prophylaxis. 12. Code status was discussed with the family and as per significant other, she wishes to be a full code. I had a family meeting with the patient's significant other, daughter and her , the patient's mother, 2 sisters, and a [id number], and they are all aware of the patient's complex clinical picture and overall poor prognosis. TIME SPENT: Approximately 90 minutes of critical care time was spent to complete this admission. [id number]/[facility] #: [id number] LIDA
--- NOTE | 2018-12-01 22:45 | PN ---
Hospitalist Progress Note Date of Service: 12/01/18 HOSPITALIST ADDENDUM Called by RN - patient's BP remains low even maxed out on Levophed and Vasopressin. She now has mottling of extremities. D/w Dr Leggett - recommended giving 1 amp of bicarb and if her BP responds, start bicarb drip. No indication for further pressors. Family members present in ICU (son and , grandchildren, nieces) and other family members on the phone (Ish and her sisters) were updated about patient grave condition and poor prognosis. Will continue to monitor closely in ICU.
[2018-12-01] MEDS ORDERED: Sodium Bicarbonate 8.4% IV* 100 MEQ in D5W 1000 ML BAG* 1,000 ML IV SCH (23:00)
[2018-12-01] MEDS ORDERED: Sodium Bicarbonate 8.4% IV* 50 ML VIAL IV ONE (23:00)
[2018-12-01] MEDS ORDERED: NS 0.9% IV SCH (23:00)
[2018-12-01] MEDS ORDERED: SODIUM BICARBONATE IV SCH (23:00)
[2018-12-01] MEDS ORDERED: Chlorhexidine MOUTHWASH 0.12%* 15 ML UDC TOPICAL SCH (23:59)
[2018-12-02] MEDS: Norepinephrine 16MCG/ML IVPRE* 4,000 MCG/250 ML BAG IV SCH (00:08)
[2018-12-02] MEDS ORDERED: Sodium Bicarbonate 8.4% IV* 50 ML VIAL ONE (00:51)
[2018-12-02] MEDS ORDERED: Norepinephrine VIAL* 1 MG/ML 4 ML VIAL ONE (00:51)
[2018-12-02] MEDS ORDERED: EPINEPHrine SYR 0.1MG/ML* SYRINGE ONE (00:51)
[2018-12-02] MEDS ORDERED: VASOPRESSIN 20 UNITS/ML 1 ML VIAL ONE (00:51)
[2018-12-02 01:29] VITALS: BP 147/106
--- NOTE | 2018-12-02 02:45 | OP ---
DATE OF OPERATION: 12/02/18 - ROOM #ICU-07 DATE OF : 59 SURGEON: Surjit Addison MD ANESTHESIA: 1% lidocaine plain. PRE-OP DIAGNOSES: Sepsis and hypotension. POST-OP DIAGNOSES: Sepsis and hypotension. OPERATIVE PROCEDURE: Attempted and unsuccessful left and right femoral artery arterial catheterization. ESTIMATED BLOOD LOSS: Minimal. WOUND CLASSIFICATION: 1. BRIEF HISTORY: Ms.Theresa Combs is a 63-year-old woman who presented to the emergency room in profound sepsis. She has a history of being presently treated for AML. She was intubated in the emergency room and transferred to intensive care unit where central venous access had already been obtained prior to my seeing her. She was on multiple vasopressors and received large amounts of volume and an arterial line catheter was requested by Surgery. I did not have an opportunity to adequately obtain informed consent as this was considered emergent procedure. DESCRIPTION OF PROCEDURE: The left groin was prepped and draped in the usual sterile fashion. Time-out verification was completed. Using the ultrasound, it was difficult to determine the vessels and it was difficult to palpate a femoral pulse and several passes of the 18-gauge Cook needle was used and I was able to puncture the vein with good blood return but not arterial, but I did not feel I was able to puncture the artery on the left side. Placement of the ultrasound machine again revealed no evidence of pulsatile vessels and at this time the hospitalist, Dr. Martinez, was called and no pulses were felt anywhere in the body and the ABC alert was called and full cardiopulmonary resuscitation was commenced under ACLS protocol per Dr. Martinez. The patient did not survive the cardiac arrest and no further attempts at arterial catheterization were obtained. [id number]/[facility] #: [id number] [facility]
[2018-12-02] MEDS ORDERED: Piperacillin/Tazobac ADVAN(*) 3.375 GM in NS 0.9% 100 ML* 100 ML IVPB SCH (03:00)
--- NOTE | 2018-12-02 04:49 | DS ---
CC: Dr. Ayana Zuñiga; Dr. Leggett; Dr. Case Chapin, Fartun Padilla SUMMARY: DATE OF ADMISSION: 12/01/18 DATE OF : 12/02/18 PRIMARY CARE PROVIDER: Dr. Ayana Zuñiga. CRITICAL CARE PROVIDER: Dr. Leggett. ONCOLOGIST: Fartun Stark. DISCHARGE DIAGNOSES: 1. Septic shock. 2. Right upper lobe pneumonia. SECONDARY DIAGNOSES: 1. Coronary artery disease. 2. Hypertension. 3. Cerebrovascular accident. 4. Gastroesophageal reflux disease. 5. Anxiety. 6. Depression. 7. Congestive heart failure. 8. Reported acute myeloid leukemia. HOSPITAL COURSE: Ms. Combs was a 63-year-old lady with past medical history as stated above who pre sented to the emergency room with complaints of abdominal pain, fatigue, and weakness. For more deta ils about her presentation, I refer you to her history and physical. The patient was admitted to the intensive care unit under the impression of septic shock secondary to pneumonia and her condition continued to decline overnight. She was receiving maximum dose of Levop hed, vasopressin, on a bicarb drip and also receiving LR when she became pulseless. was kulkarni d and resuscitation efforts were started. The patient received a total of 4 epinephrines 1 mg and 1 amp of sodium bicarb with return of her pulse. At that point, I talked to her family including her s ignificant other, Ish Danika and he was very clear that the patient would not want any further att empts of resuscitation if the chance of meaningful recovery was low. He states that 2 days prior to admission, they had talked about it and the patient made her wishes known. Shortly after, her DNR form was filled up, the patient once again became pulseless, but at that point , resuscitation was not attempted. She continued to have PEA with agonal breathing. All the provide rs were under the impression, the patient's pulse had returned, but I never felt it back for a second time. We continued to monitor the patient and she remained pulseless and eventually her agonal nader thing stopped. Time of was 1:19 a.m. The patient's family was notified as they were present in ICU. TIME SPENT: Approximately 40 minutes was spent to complete this discharge. [id number]/[facility] #: [id number]
[2018-12-02] MEDS ORDERED: Hydrocortisone INJ* 100 MG VIAL IV SCH (06:30)
[2018-12-02] MEDS ORDERED: Vancomycin(*) 500 MG in NS 0.9% 250 ML* 250 ML IVPB SCH (09:00)
[2018-12-03] MEDS ORDERED: Vancomycin Trough Check NOTE FOLLOW UP ONE (08:30)
== END 2018-12-02 01:19 | disposition expired | DRG 871 ==
LOC: ED 16:02 → ICU 19:59
PROVIDERS: ADMIT Internal Medicine; ATTEND Internal Medicine
PROC: 5A1935Z Respiratory Ventilation, Less than 24 Consecutive Hours (ICD-10-PCS; principal; 2018-12-01)
PROC: 3E043XZ Introduction of Vasopressor into Central Vein, Percutaneous Approach (ICD-10-PCS; 2018-12-01)
PROC: 04HL33Z Insertion of Infusion Device into Left Femoral Artery, Percutaneous Approach (ICD-10-PCS; 2018-12-01)
PROC: 5A12012 Performance of Cardiac Output, Single, Manual (ICD-10-PCS; 2018-12-01)
PROC: 04HK33Z Insertion of Infusion Device into Right Femoral Artery, Percutaneous Approach (ICD-10-PCS; 2018-12-01)
PROC: 0BH17EZ Insertion of Endotracheal Airway into Trachea, Via Natural or Artificial Opening (ICD-10-PCS; 2018-12-01)
DX: A41.9 Sepsis, unspecified organism (principal); R65.21 Severe sepsis with septic shock; J18.1 Lobar pneumonia, unspecified organism; J96.01 Acute respiratory failure with hypoxia; R40.2343 Coma scale, best motor response, flexion withdrawal, at hospital admission; R40.2113 Coma scale, eyes open, never, at hospital admission; R40.2213 Coma scale, best verbal response, none, at hospital admission; C92.00 Acute myeloblastic leukemia, not having achieved remission; E87.2 Acidosis; N17.9 Acute kidney failure, unspecified; G96.0 Cerebrospinal fluid leak; I25.10 Atherosclerotic heart disease of native coronary artery without angina pectoris; I11.0 Hypertensive heart disease with heart failure; K21.9 Gastro-esophageal reflux disease without esophagitis; F41.9 Anxiety disorder, unspecified; F32.9 Major depressive disorder, single episode, unspecified; I50.9 Heart failure, unspecified; Z66 Do not resuscitate; F17.210 Nicotine dependence, cigarettes, uncomplicated; E87.5 Hyperkalemia; D64.9 Anemia, unspecified; E78.00 Pure hypercholesterolemia, unspecified; Z86.73 Personal history of transient ischemic attack (TIA), and cerebral infarction without residual deficits; Z88.8 Allergy status to other drugs, medicaments and biological substances; Z88.5 Allergy status to narcotic agent; Z82.49 Family history of ischemic heart disease and other diseases of the circulatory system; Z82.3 Family history of stroke; I25.2 Old myocardial infarction
CPT/HCPCS: 36415; 70450; 71045; 74177; 76705; 80053; 81003; 81015; 82803; 83605; 83690; 83880; 84484; 85025; 85060; 85610; 85730; 87040; 87077; 87086; 87186; 87205; 87641; 87899; 93005; 94002; 94003; 99285; A9270-GY; J0171; J0330; J0456; J1720; J2270; J2543; J2704; J3370; J7060; Q9967